=== PATIENT | female | born 1970 | race Caucasian/White ===

== ENCOUNTER 2021-09-25 08:54 | Outpatient (CLI) | payer OTHER | END 2021-09-25 08:55 | disposition home or self-care (01) | LOC: TBSIIMAG 08:54 | PROVIDERS: ATTEND Neurological Surgery | DX: S32.000D Wedge compression fracture of unspecified lumbar vertebra, subsequent encounter for fracture with routine healing (principal); M54.6 Pain in thoracic spine; M47.816 Spondylosis without myelopathy or radiculopathy, lumbar region | CPT/HCPCS: 72072; 72100 ==